=== PATIENT | male | born 1955 | race Caucasian/White ===

== ENCOUNTER 2018-10-01 12:33 | Outpatient (REF) | payer BC, SELFPAY ==
[2018-10-01 18:58] LABS: ALT 27 U/L (12-78); BUN 13 mg/dL (7-18); CREATININE 0.99 mg/dL (0.70-1.30); Calcium 8.9 mg/dL (8.5-10.1); Chloride 103 mmol/L (98-107); Glucose 150 mg/dL (70-100); LDL CHOLESTEROL 70 mg/dL (<100); Potassium 4.3 mmol/L (3.5-5.1); Sodium 140 mmol/L (136-145)
[2018-10-01 19:31] LABS: Creatine Kinase 238 U/L (39-308)
== END 2018-10-01 12:53 ==
LOC: NCHCN 12:33
PROVIDERS: PCP Internal Medicine; Visit Provider Internal Medicine
DX: K13.21 Leukoplakia of oral mucosa, including tongue (principal); I10 Essential (primary) hypertension; E78.5 Hyperlipidemia, unspecified; Z96.641 Presence of right artificial hip joint; Z98.61 Coronary angioplasty status
CPT/HCPCS: 80048; 82550; 83721; 84460

== ENCOUNTER 2019-08-25 14:15 | Outpatient (REF) | payer BC, SELFPAY ==
[2019-08-25 19:31] LABS: ALT 34 U/L (16-63); Anion Gap 7.1 mmol/L (3-11); BUN 16 mg/dL (7-18); CO2 29.9 mmol/L (21.0-32.0); Calcium 9.2 mg/dL (8.5-10.1); Chloride 107 mmol/L (98-107); Glucose 110 mg/dL (74-106); LDL CHOLESTEROL 78 mg/dL (<100); Potassium 4.3 mmol/L (3.5-5.1); Sodium 144 mmol/L (136-145)
[2019-08-25 20:00] LABS: Uric Acid 6.4 mg/dL (3.5-7.2)
== END 2019-08-25 14:35 ==
LOC: NCHCN 14:15
PROVIDERS: PCP Internal Medicine; Visit Provider Internal Medicine
DX: R73.09 Other abnormal glucose (principal); I10 Essential (primary) hypertension; M70.61 Trochanteric bursitis, right hip
CPT/HCPCS: 80048; 83721; 84460; 84550

== ENCOUNTER 2019-12-22 00:06 | Outpatient (CLI) | payer MEDICARE, SELFPAY ==
--- NOTE | 2019-12-22 08:45 | DI.NM_ITS ---
APPROVED REPORT Exam: Pharmacologic Patient Location: Out-Patient Room/Bed: Stress Nurse: Laurence Cintron RN BMI: 30.34 Baseline Rhythm: Sinus Rhythm Indications: Coronary Artiosclerosis. Medical History Medical History: HTN, Hyperlipidemia Cardiac Medications: Diltiazem. Metoprolol. Lisinopril. Atorvastatin. Aspirin., Allergies: No known drug allergies Cardiac Risk Factors: HTN, Hyperlipidemia, FHX of CAD, former smoker Pretest Chest Pain Characteristics: No chest pain Exercise History: Indeterminate Physical Disabilities: Hips Lung Sounds: Clear to auscultation Heart Sounds: Regular Stress Test Details Test: Exercise stress testing was performed using a Ricardo protocol., Pharmacologic stress testing pe rformed using 0.4 mg of regadenoson per 5 mL given IV over 10 seconds. Nuclear Acquisition: Rest Tc-99m/Stress Tc-99m 1 day Rest Isotope: Tc-99m Sestamibi. Dose: 12.5 Date: 12/22/2019 Injection Time: 0900 Stress Isotope: Tc-99m Sestamibi. Dose: 37.1 Date: 12/22/2019 Injection Time: 1102 HR Resting HR Supine: 67 bpm Max Heart Rate (APMHR): 155 bpm Target HR (85% APMHR): 131 bpm Max HR Achieved: 86 bpm % of APMHR: 55 Recovery HR: 76 bpm BP Resting BP Supine: 138/90 mmHg Max BP: 138/74 mmHg Recovery BP: 138/74 mmHg ECG Resting ECG: Sinus Rhythm Ectopy: none Stress ECG: Sinus Rhythm ST Change: Normal Arrhythmia: None Recovery ECG: Sinus Rhythm Recovery ST Change: Normal Recovery Arrhythmia: Few PACs noted. Clinical Stress Symptoms: No significant side effects from Lexiscan injection. Stress ECG Conclusion 1. A pharmacological stress test. 2. The patient no symptoms suggestive of ischemia. 3. The EKG portion of this exam is nondiagnostic. Protocol Used: Regadenoson Stress Test Summary STAGE HR BP Symptoms NOTES Supine 67 138/90 1 min post Lexiscan injection 86 120/72 3 min post Lexiscan injection 82 128/80 6 min post Lexiscan injection 76 138/74 MPI Conclusion Patient's ejection fraction was 56% with stress. There were no wall motion abnormalities. Is no evidence of ischemia on the imaging portion of this exam. Represents a normal SPECT stress test. Radiologist Interpretation Radiologist Interpretation by: Gus Foley MD Interpretation Date/Time: 12/22/2019 13:26:27
[2019-12-22] MEDS: Regadenoson 0.4 MG/5 ML SYR IVP (11:22)
[2019-12-22] MEDS: Normal Saline Flush 10 ML SYR IVP (11:56)
== END 2019-12-22 00:26 ==
PROVIDERS: PCP Internal Medicine; Visit Provider Internal Medicine Interventional Cardiology
DX: I25.10 Atherosclerotic heart disease of native coronary artery without angina pectoris (principal); I10 Essential (primary) hypertension; E78.5 Hyperlipidemia, unspecified; Z87.891 Personal history of nicotine dependence; Z82.49 Family history of ischemic heart disease and other diseases of the circulatory system
CPT/HCPCS: 78452; 93016; 93018; 93017; J2785

== ENCOUNTER 2021-03-14 17:21 | Outpatient (REF) | payer MEDICARE, SELFPAY ==
[2021-03-14 18:48] LABS: ALT 38 U/L (16-63); Anion Gap 9.1 mmol/L (3-11); BUN 20 mg/dL (7-18); CO2 25.9 mmol/L (21.0-32.0); CREATININE 1.1 mg/dL (0.70-1.30); Calcium 9.1 mg/dL (8.5-10.1); Calculated LDL 78 mg/dL (<100); Chloride 107 mmol/L (98-107); Cholesterol 139 mg/dL (<200); Glucose 115 mg/dL (74-106); HDL Cholesterol 35 mg/dL (40-60); Potassium 4.3 mmol/L (3.5-5.1); Sodium 142 mmol/L (136-145); Triglyceride 134 mg/dL (<150)
== END 2021-03-14 17:22 | disposition home or self-care (01) ==
LOC: NCHCN 17:21
PROVIDERS: PCP Internal Medicine; Visit Provider Internal Medicine
DX: R73.03 Prediabetes (principal); I10 Essential (primary) hypertension; R78.5 Finding of other psychotropic drug in blood
CPT/HCPCS: 80048; 80061; 84460

== ENCOUNTER 2022-01-13 20:56 | Outpatient (REF) | payer OTHER, SELFPAY ==
[2022-01-13 22:37] LABS: Hemoglobin A1C 6.2 % (<5.7)
[2022-01-13 22:54] LABS: ALT 35 U/L (16-63); Anion Gap 8.1 mmol/L (3-11); BUN 16 mg/dL (7-18); CO2 27.9 mmol/L (21.0-32.0); CREATININE 1.1 mg/dL (0.70-1.30); Calcium 8.7 mg/dL (8.5-10.1); Chloride 105 mmol/L (98-107); Glucose 116 mg/dL (74-106); Potassium 4.2 mmol/L (3.5-5.1); Sodium 141 mmol/L (136-145)
== END 2022-01-13 20:57 | disposition home or self-care (01) ==
LOC: NCHCN 20:56
PROVIDERS: PCP Internal Medicine; Visit Provider Nurse Practitioner Family
DX: R73.03 Prediabetes (principal); I10 Essential (primary) hypertension; E78.5 Hyperlipidemia, unspecified
CPT/HCPCS: 80048; 83036; 84460

== ENCOUNTER 2022-07-04 08:26 | Outpatient (CLI) | payer OTHER, SELFPAY | END 2022-07-04 08:27 | disposition home or self-care (01) | LOC: DI.CARD 08:27 | PROVIDERS: PCP Internal Medicine; Visit Provider Internal Medicine Cardiovascular Disease | DX: R69 Illness, unspecified (principal) | CPT/HCPCS: 93010 ==

== ENCOUNTER 2023-04-16 16:42 | Outpatient (REF) | payer OTHER, SELFPAY ==
[2023-04-16 19:57] LABS: ALT 30 U/L (16-63); Anion Gap 7.5 mmol/L (3-11); BUN 20 mg/dL (7-18); CO2 28.5 mmol/L (21.0-32.0); CREATININE 1.2 mg/dL (0.70-1.30); Calcium 8.9 mg/dL (8.5-10.1); Calculated LDL 69 mg/dL (<100); Chloride 106 mmol/L (98-107); Cholesterol 151 mg/dL (<200); Estimated GFR 65.87 (mL/min/1.73m2); Glucose 96 mg/dL (74-106); HDL Cholesterol 39 mg/dL (40-60); Potassium 4.1 mmol/L (3.5-5.1); Sodium 142 mmol/L (136-145); Triglyceride 219 mg/dL (<150)
[2023-04-16 20:23] LABS: COMMENT (LAB VIEW ONLY) 165.01 mg/dL; Microalb ug/mg Crea 5.3 ug/mg Cr
[2023-04-16 20:28] LABS: Creatine Kinase 424 U/L (39-308)
== END 2023-04-16 16:43 | disposition home or self-care (01) ==
LOC: NCHCN 16:42
PROVIDERS: PCP Internal Medicine; Visit Provider Internal Medicine
DX: E78.5 Hyperlipidemia, unspecified (principal); I10 Essential (primary) hypertension; I47.1 Supraventricular tachycardia; R10.9 Unspecified abdominal pain; Z98.61 Coronary angioplasty status
CPT/HCPCS: 80048; 80061; 82550; 82043; 82570; 84460

== ENCOUNTER 2023-10-15 16:11 | Outpatient (REF) | payer OTHER, SELFPAY ==
[2023-10-15 19:38] LABS: Hemoglobin A1C 5.9 % (<5.7)
== END 2023-10-15 16:12 | disposition home or self-care (01) ==
LOC: NCHCN 16:11
PROVIDERS: PCP Internal Medicine; Visit Provider Internal Medicine
DX: R73.03 Prediabetes (principal)
CPT/HCPCS: 83036

== ENCOUNTER 2024-08-18 15:14 | Outpatient (REF) | payer OTHER, SELFPAY ==
[2024-08-18 19:28] LABS: Anion Gap 8.8 mmol/L (3-11); BUN 15 mg/dL (7-18); CO2 27.2 mmol/L (21.0-32.0); CREATININE 1.1 mg/dL (0.70-1.30); Calcium 9.4 mg/dL (8.5-10.1); Calculated LDL 63 mg/dL (<100); Chloride 105 mmol/L (98-107); Cholesterol 153 mg/dL (<200); Estimated GFR 72.67 (mL/min/1.73m2); Glucose 113 mg/dL (74-106); HDL Cholesterol 48 mg/dL (40-60); Potassium 4.8 mmol/L (3.5-5.1); Sodium 141 mmol/L (136-145); Triglyceride 213 mg/dL (<150)
== END 2024-08-18 15:15 | disposition home or self-care (01) ==
LOC: NCHCN 15:14
PROVIDERS: PCP Internal Medicine; Visit Provider Internal Medicine
DX: E78.5 Hyperlipidemia, unspecified (principal)
CPT/HCPCS: 80048; 80061

== ENCOUNTER 2025-08-24 13:47 | Outpatient (REF) | payer MEDICARE, SELFPAY ==
[2025-08-24 19:22] LABS: Anion Gap 5.2 mmol/L (3-11); BUN 18 mg/dL (9-23); CO2 28.8 mmol/L (20.0-31.0); Calcium 9.1 mg/dL (8.3-10.6); Chloride 108 mmol/L (98-107); Cholesterol 128 mg/dL (<200); Glucose 99 mg/dL (74-106); HDL Cholesterol 36 mg/dL (>40); Potassium 4.5 mmol/L (3.5-5.1); Sodium 142 mmol/L (136-145)
== END 2025-08-24 13:48 | disposition home or self-care (01) ==
LOC: NCHCN 13:47
PROVIDERS: PCP Internal Medicine; Visit Provider Nurse Practitioner
DX: I10 Essential (primary) hypertension (principal)
CPT/HCPCS: 80048; 80061